=== PATIENT | male | born 1995 ===

== ENCOUNTER 2024-10-22 20:19 | Emergency (ER) | payer SELFPAY ==
[2024-10-22 20:33] VITALS: BP 110/73; PULSE 69; RESP 16; TEMP 36.6; BMI 25.8
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
[2024-10-22 20:51] VITALS: BP 110/73; PULSE 69; RESP 16; TEMP 36.6
== END 2024-10-22 20:52 | disposition home or self-care (01) ==
PROVIDERS: Emergency Provider Internal Medicine
DX: S09.90XA Unspecified injury of head, initial encounter (principal); V43.52XA Car driver injured in collision with other type car in traffic accident, initial encounter; Y93.9 Activity, unspecified; Y92.410 Unspecified street and highway as the place of occurrence of the external cause; Y99.8 Other external cause status
CPT/HCPCS: 99282